=== PATIENT | female | born 1940 | race Caucasian/White ===

== ENCOUNTER 2018-03-13 09:33 | Emergency (ER) | payer MEDICARE, MEDICAID ==
[~2018-03-13] VITALS: Ht 165.1 cm; Wt 108.0 kg
[~2018-03-13 09:33] MED LIST: ASPI-1264 PO; ATOR40TA PO; MECL12.584 PO
[2018-03-13 09:38] VITALS: BP 169/91
[2018-03-13] MEDS ORDERED: TETanus/Pertussis (Acell)/Diphther VAC/PF (Tdap-Adult) 0.5ml syringe IM ONE (10:20)
[2018-03-13] MEDS ORDERED: LIDOcaine 1.5% w/epinephrine 1:200,000 5ml ampul IJ ONE (10:20)
[2018-03-13] MEDS ORDERED: SULF1TAB49 PO (10:56)
[2018-03-13] MEDS ORDERED: CEPH250T PO (10:56)
== END 2018-03-13 11:22 | disposition home or self-care (01) ==
LOC: ER 09:34
DX: L03.114 Cellulitis of left upper limb (principal); M71.022 Abscess of bursa, left elbow; E78.00 Pure hypercholesterolemia, unspecified; I10 Essential (primary) hypertension; Z98.890 Other specified postprocedural states; Z79.82 Long term (current) use of aspirin; Z79.899 Other long term (current) drug therapy
CPT/HCPCS: 10060; 90471; 90715; 99283; A6222; A6446; A6449; J3490

== ENCOUNTER 2018-03-16 07:24 | Emergency (ER) | payer MEDICARE, MEDICAID ==
[~2018-03-16] VITALS: Ht 165.1 cm; Wt 90.0 kg
[~2018-03-16 07:24] MED LIST changes: +CEPH250T PO; +SULF1TAB49 PO
[2018-03-16 07:28] VITALS: BP 156/81
== END 2018-03-16 08:27 | disposition home or self-care (01) ==
LOC: ER 07:25
DX: L03.114 Cellulitis of left upper limb (principal); E78.00 Pure hypercholesterolemia, unspecified; I10 Essential (primary) hypertension; Z88.6 Allergy status to analgesic agent; Z79.82 Long term (current) use of aspirin; Z98.890 Other specified postprocedural states
CPT/HCPCS: 99283; A6222; A6446